=== PATIENT | female | born 1940 | race Caucasian/White ===

== ENCOUNTER 2020-11-06 06:39 | Observation (INO) ==
[2020-11-06] MEDS ORDERED: ACETAMINOPHEN 1,000 MG/100 ML VIAL IV PRN (08:43)
[2020-11-06] MEDS ORDERED: ONDANSETRON INJ 2 MG/ML 2 ML VIAL IV PRN ×2 (08:43→11:45)
[2020-11-06] MEDS ORDERED: MoRPHine SULFATE 2 MG/ML CARP IV PRN (08:43)
[2020-11-06] MEDS ORDERED: PATIENT'S ALLERGY INFO NEEDS ENTERED STA (08:46)
--- NOTE | 2020-11-06 09:00 | History & Physical Report ---
Date of Service November 06, 2020 Assessment & Plan (1) Hernia: Due to the patient's hernia we will place the patient in the hospital on observation status and proceed as follows: We will keep the patient n.p.o. Provide analgesics Provide antiemetics Gently hydrate with IV fluids There is concern for urinary tract infection at [facility] the patient did receive Rocephin. We will check a urine culture and proceed accordingly Dr. Oleary is planning on taking the patient to the operating room today for repair of her inguinal hernia. A Covid test has been ordered and sent and is pending we will follow for the results of this We will check a preoperative EKG We will check a preoperative chest x-ray The recommendations were made based on her clinical course as unfolds as well as operative findings This patient for surgery we will use SCDs for DVT prevention we will avoid chemical means due to planned surgery Admission and Anticipated Discharge Date Admission Date: November 06, 2020 History of Present Illness Chief Complaint: Abdominal pain Primary Care Provider: Nick Cortez This is a 80-year-old female who developed abdominal pain at approximately 8:30 PM last evening. Patient was initially located near her umbilicus and shifted to her right lower quadrant. Patient felt as though she was suffering from an appendicitis and the pain did not resolve so she went to the emergency department at [facility]. Patient says that she did have intermittent bouts of nausea without vomiting. She denied any fevers, shakes, chills. She notes that she did have a normal bowel movement yesterday. She notes that her last oral intake was yesterday. Patient does not note any provocative factors of her pain and the pain does not radiate. She said that the pain was alleviated somewhat with medications that were administered in the emergency department. Concerning previous abdominal surgeries the patient says that she did have a hysterectomy. In the emergency department at [facility] the patient did have labs and imaging performed a CT scan revealed a right inguinal hernia that was causing a developing small bowel obstruction with some mild dilation of the small bowel. A CBC revealed her hemoglobin, hematocrit, white blood cell count, and platelet count were all within normal range. A chemistry profile showed her sodium, BUN, and creatinine were normal. Her potassium noted a slight elevation of 5.3. A troponin level was checked which was not elevated and she also had a lactic acid level checked that was also not elevated. Urinalysis was also concerning for urinary tract infection. As the patient was seen in the emergency department at [facility] they felt patient required transfer to [facility] where surgical services were available. Patient was excepted upon transfer for care. I interviewed the patient in room 360 and the patient noted that since her treatment at [facility] she was feeling better and was in no distress. Allergies Allergy/AdvReac Type Severity Reaction Status Date / Time No Known Allergies Allergy Unverified 11/06/20 10:16 Home Medications Medication Instructions Recorded Confirmed Type Aleve PRN 11/06/20 History ascorbic acid (vitamin C) [Vitamin Q OTHER DAY 11/06/20 History C] ferrous sulfate [FeroSul] mg Q OTHER DAY 11/06/20 History Past Med/Surg History Medical History Arthritis Iron deficiency Surgical History H/O: hysterectomy Family History Denies family history of Coronary heart disease Social History Smoking Status: Never smoker Second Hand Exposure: No; Do You Dip or Chew Tobacco: No; Tobacco Cessation Education Requested by Patient: No Hx Alcohol Use: Yes Alcohol type: wine Hx Substance Use: No Preferred Language: Mauritanian Communication Ability: Effective Millinery Blocker Required: No Beliefs That Will Affect Care: None Current Living Situation: Spouse Other Information That Helps Us Care for You: No Feels Safe at Home: Yes Safety Concerns: Feels Safe At This Time Gender Identity: Female Assistive Devices: Glasses Review of Systems Constitutional: no fever and no chills Eyes: no diplopia Ear, Nose, Mouth, Throat: no ear pain Respiratory: no cough and no dyspnea Cardiovascular: no chest pain Gastrointestinal: + abdominal pain and + nausea; no vomiting Genitourinary: no dysuria Musculoskeletal: no back pain Integumentary: no rash Neurologic: no generalized weakness Physical Exam Constitutional: well developed and well nourished; no acute distress Eyes: Wears glasses ENMT: Ears: no hearing impairment Neck: trachea midline Respiratory: normal respiratory effort, lungs clear to auscultation Cardiovascular: Rate/Rhythm: regular rate and regular rhythm Gastrointestinal (Abdomen): Abdomen is soft and nondistended. There is no rebound tenderness or guarding. Patient did have pain with palpation in the right lower quadrant Patient was examined by Dr. Oleary at the bedside and he was able to reduce a right inguinal hernia. Musculoskeletal: Calf tenderness Skin: no rashes, warm and dry Neurologic: moves all extremities Psychiatric: A+Ox3, euthymic affect Code Status & VTE Plan VTE Prophylaxis Plan VTE Prophylaxis will be ordered: Yes Supervising Physician Co-Signing Physician Notes I personally saw and evaluated the patient with Siva Pearl PA-C and agree with the assessment and plan. 80 yo female with incarcerated right inguinal hernia -NPO -To OR today for open repair right inguinal hernia, possible mesh, possible exploratory laparotomy, possible bowel resection -Consent obtained, risks discussed including bleeding, infection, recurrence, leak, mesh infection, chronic pain PG Care Time/CCT Total # of Minutes Spent Total Time Spent with Patient: Total time spent is greater than 50% in coordination of care (as documented) at patient's floor/unit and/or counseling patient: Coding Level of Care Code 58502 OBS Care - Level 3 Diagnoses Hernia K46.9
[2020-11-06 10:00] LABS: BUN Creatinine Ratio 26.1 (10-20); Blood Urea Nitrogen 19 mg/dl (7-18); Calcium 8.7 mg/dl (8.5-10.1); Carbon Dioxide 30 mmol/L (21-32); Chloride 107 mmol/L (98-107); Est GFR (Non-African American) 80.2 ml/min; Glucose 102 mg/dl (70-99); Potassium 4.6 mmol/L (3.5-5.1); Sodium 139 mmol/L (136-145)
--- NOTE | 2020-11-06 10:07 | XRay Report ---
XR chest 1V portable CLINICAL HISTORY: Preoperative evaluation. COMPARISON STUDY: No previous studies for comparison. FINDINGS: Lung volumes are mildly diminished. A large hiatal hernia is noted. Note is made of mild ca rdiomegaly. There is pulmonary vascular congestion with possible mild pulmonary edema. Left lower shahla g opacity favors atelectasis. There is no pneumothorax. There is no definite pleural effusion. IMPRESSION: 1. Cardiomegaly. Pulmonary vascular congestion with suspected mild pulmonary edema. 2. Left basilar opacity which favors atelectasis. 3. Large hiatal hernia. ACT 112: Negative or not required by law. Electronically signed by: George Sweeney M.D. 11/06/2020 10:06 AM
--- NOTE | 2020-11-06 10:15 | Anesthesiology Consultation ---
Date of Service November 06, 2020 Assessment & Plan (1) Encounter for pre-operative examination: Chart Review Chart Review: Acceptable Risk for Surgery and Patient NOT seen in Pre Admission Testing Consults Requested none ASA ASA3 Proposed Anesthesia Anesthesia Type: General Risk / Benefits Reviewed With: PT / POA / Parent / Guardian, Accepts Plan and Informed Consent Obtained History Surgery Operation Date: 11/06/20 09:00 Proposed Procedures p Inguinal Hernia Repair - Chad Oleary, DO Height/Weight Height: 4 ft 11 in Weight: 65.6 kg Allergies Allergy/AdvReac Type Severity Reaction Status Date / Time No Known Allergies Allergy Unverified 11/06/20 10:16 Medications Home Medications Medication Instructions Recorded Confirmed Last Taken Aleve PRN 11/06/20 Unknown ascorbic acid (vitamin C) [Vitamin Q OTHER DAY 11/06/20 Unknown C] ferrous sulfate [FeroSul] mg Q OTHER DAY 11/06/20 Unknown Active Medications Generic Name Dose Route Start Last Admin Trade Name Freq PRN Reason Stop Dose Admin Lactated Ringer's 1,000 mls @ 75 mls/hr 11/06/20 09:30 11/06/20 10:26 Lr IV 12/06/20 09:29 75 mls/hr .[id number] MEGHA Administration NPO Date Last Intake of Fluids: 11/05/20 Time Last Intake of Fluids: 20:30 Date Last Intake of Solids: 11/05/20 Time Last Intake of Solids: 20:30 Past Medical History Medical History Arthritis Iron deficiency Exercise / Class Metabolic Activity III < 4 Walking/Shop/Light housework Negative for chest pain or shortness of breath. Past Family History Family History Denies family history of Coronary heart disease Past Surgical History Surgical History H/O: hysterectomy Past Anesthesia History No Hx of Anesthesia Complications History of PONV No Hx of PONV Social History Smoking Status: Never smoker Do You Dip or Chew Tobacco: No Hx Alcohol Use: Yes Alcohol type: wine alcohol intake frequency: holidays/special occasions only Hx Substance Use: No Review of Systems Presented last night with abd pain and nausea. No vomiting. Hernia was reduced in [place] and patient now denies nausea and pain. Appropriately NPO and has been moving bowels regularly. Physical Exam Vital Signs Last Vital Signs Temp 36.7 C 11/06/20 09:14 Pulse 74 11/06/20 09:14 Resp 20 11/06/20 09:14 BP 136/60 11/06/20 09:14 Pulse Ox 96 11/06/20 09:14 Constitutional not obese ENMT Mouth: no TMJ abnormality and oral opening not small Thyromental Distance: > or= 3.5 Finger Breadths Mallampati Class: III Neck normal visual inspection; neck extension not limited Respiratory normal respiratory effort Auscultation: lungs clear to auscultation bilaterally Cardiovascular Rate/Rhythm: regular rate and regular rhythm Heart Sounds: no murmur Neurologic moves all extremities Psychiatric Orientation: alert and oriented x 3 Testing Laboratory Results 11/06/20 09:35 COVID neg Electrocardiogram Date: 11/06/20 Findings: + NSR @ (76) Right axis deviation, septal infarct, age undetermined, t wave abnormality, consider inferior ischemia Chest X-Ray Date: 11/06/20 1. Cardiomegaly. Pulmonary vascular congestion with suspected mild pulmonary edema. 2. Left basilar opacity which favors atelectasis. 3. Large hiatal hernia. Stress Test Date: 10/13/20 Type: nuclear Findings: + WNL
[2020-11-06] MEDS: LACTATED RINGER'S 1,000 ML IV SCH ×2 (10:26→15:37)
[2020-11-06] MEDS ORDERED: BUPIVACAINE/EPINEPHRINE 0.5% MPF 1:200,000 30 ML VIAL ONE (11:23)
[2020-11-06] MEDS ORDERED: fentaNYL citrate 100 MCG/2 ML VIAL ONE (11:27)
[2020-11-06] MEDS ORDERED: ePHEDrine sulfate 50 MG/ML AMP IV PRN (11:45)
[2020-11-06] MEDS ORDERED: ATROPINE SULFATE 0.1 MG/ML 10ML SYR IV PRN (11:45)
[2020-11-06] MEDS ORDERED: fentaNYL citrate 100 MCG/2 ML VIAL IV PRN (11:45)
[2020-11-06] MEDS ORDERED: DEXAMETHASONE SOD INJ 4 MG/ML VIAL ONE (12:06)
[2020-11-06] MEDS ORDERED: ONDANSETRON INJ 2 MG/ML 2 ML VIAL ONE (12:06)
[2020-11-06] MEDS ORDERED: PROPOFOL IV EMULSION 10 MG/ML 20 ML VIAL IV ONE (12:06)
[2020-11-06] MEDS ORDERED: LIDOCAINE HCL 2% 2 ML VIAL/AMP(20MG/ML) INFIL ONE (12:06)
[2020-11-06] MEDS ORDERED: ceFAZolin 2000MG 2,000 MG/15 ML SYR IV ONE (12:13)
--- NOTE | 2020-11-06 13:26 | Post Operative Brief Note ---
PG Immediate Post Op with CF Date of Surgery November 06, 2020 Pre & Post Diagnosis Operation Date: 11/06/20 09:00 Pre-Op Diagnosis: Incarcerated Right Inguinal Hernia Post-Op Diagnosis: Incarcerated RIght Inguinal Hernia I identified the patient and participated in the time-out.: Yes Procedure Operation Date: 11/06/20 09:00 Actual Procedures p Open Repair Incarcerated Right Inguinal Hernia with Mesh(Right) - Chad Oleary DO Surgeon Chad Oleary DO Avionics System Engineer None Estimated Blood Loss 5 Findings Consistent with Post-Op Diagnosis Incarcerated right inguinal hernia Fluids 600mL crystalloid Specimens Specimen Description: A. Cord Lipoma Anesthesia Type General Complications none Disposition Disposition: Recovery Room
--- NOTE | 2020-11-06 13:34 | Operative Report ---
PG Post Operative Report Pre & Post Diagnosis Operation Date: 11/06/20 09:00 Pre-Op Diagnosis: Incarcerated Right Inguinal Hernia Post-Op Diagnosis: Incarcerated Right Inguinal Hernia I identified the patient and participated in the time-out.: Yes Procedure Operation Date: 11/06/20 09:00 Actual Procedures p Open Repair Incarcerated Right Inguinal Hernia with Mesh(Right) - Chad Oleary DO Surgeon Chad Oleary DO Mental Health Nurse None Estimated Blood Loss 5 Findings Consistent with Post-Op Diagnosis Large direct inguinal hernia Fluids 600mL crystalloid Specimens Cord lipoma to pathology Drains None Anesthesia Type General Complications none Disposition Disposition: Recovery Room Indications 80 yo female with incarcerated right inguinal hernia causing a small bowel obstruction Description of Procedure The patient was brought to the operating room and placed in the supine position. At this time she underwent General LMA anesthesia without any problems. Her right groin was prepped and draped in the usual sterile fashion. She was given appropriate pre-operative antibiotics. A timeout was called. The procedure was verified as Open Right inguinal hernia repair, possible mesh. Surgical, anesthesia and nursing teams agreed and the procedure was begun. The hernia spontaneously reduced once the patient was under anesthesia. Using the traditional landmarks of the ASIS and pubic tubercle, a transverse incision was made over the midportion of the inguinal canal using a #15 blade scalpel after injection of 0.25% Marcaine with epinephrine to anesthetize the skin. The incision was carried down the the external oblique aponeurosis with electrocautery which was cleared off of any tissue. The external oblique aponeurosis was then incised using a #15 blade scalpel and opened inferiomedially through the external inguinal ring with Metzenbaum scissors taking care not to injure the ilioinguinal nerve. It was then opened superiolaterally as well. The posterior aspect of the external oblique was cleared bluntly and the round ligament was encircled at the pubic tubercle with a Glen drain. At this time a direct inguinal hernia was evident. This was bluntly from the round ligament and easily reduced back into the abdo men. A cord lipoma was excised and tied off using 2-0 Vicryl, then passed off as specimen. At this time a plug was sutured into the direct defect using 2-0 PDS. A flat keyhole mesh was then sutured to the pubic tubercle medially, shelving edge of the inguinal ligament inferiorly and the conjoint tendon superiorly using simple interrupted 2-0 PDS. The tails of the mesh were loosely overlapped recreating the internal inguinal ring leaving adequate room for the round ligament to pass. The Yoel drain was removed. The incision was irrigated until clear. Hemostasis was acheived using electrocautery. Hemostasis was complete. At this time the external oblique aponeurosis was closed using a running 2-0 Vicryl taking care not to injure any structures beneath. Robert's fascia was closed using interrupted 3-0 Vicryl and the skin was closed using 4-0 Monocryl in a running subcuticular fashion. Needle and sponge counts were correct x 2. Steri-strips and dressing were applied. The patient was then awakened from anesthesia having remained stable throughout the entire case and transported to PACU in stable condition. I attest to the content of the Intraoperative Record and any orders documented therein. Any exceptions are noted below.
[2020-11-06] MEDS ORDERED: oxyCODONE HCL IR 5 MG TAB (IMMEDIATE RELEASE) PO PRN (14:13)
[2020-11-06] MEDS ORDERED: ACETAMINOPHEN 325 MG TAB PO PRN (14:13)
--- NOTE | 2020-11-06 14:55 | Anesthesiology Progress Note ---
Date of Service November 06, 2020 Anesthesia Post Procedure Vital Signs Vital Signs: Temp Pulse Pulse Resp BP BP Pulse Ox 11/06/20 14:14 36.4 C L 85 16 146/78 H 97 11/06/20 14:00 36.4 C L 89 15 148/74 H 97 11/06/20 13:50 85 14 154/67 H 97 11/06/20 13:40 87 14 147/76 H 97 11/06/20 13:30 89 13 155/72 H 98 11/06/20 13:22 36.7 C 91 H 12 149/71 H 99 11/06/20 09:14 36.7 C 74 20 136/60 96 Transfer of Care Handoff Completed per policy Notes Mental Status: alert / awake / arousable and participated in evaluation Patient Amnestic to Procedure: Yes Nausea / Vomiting: adequately controlled Pain: adequately controlled Airway Patency, RR, SpO2: stable & adequate BP & HR: stable & adequate Hydration State: stable & adequate Anesthetic Complications: no major complications apparent and Pt Satisfied with anesthetic care
--- NOTE | 2020-11-06 18:52 | Electrocardiogram Report ---
Test Reason : Blood Pressure : / mmHG Vent. Rate : 076 BPM Atrial Rate : 076 BPM P-R Int : 170 ms QRS Dur : 116 ms QT Int : 410 ms P-R-T Axes : 041 126 -23 degrees QTc Int : 461 ms Normal sinus rhythm Right axis deviation Left bundle branch block T wave abnormality, consider inferior ischemia Abnormal ECG No previous ECGs available Confirmed by Ignacio Murphy ([id number]) on 11/06/2020 6:52:19 PM Referred By: Chad Oleary Confirmed By:Phoenix Murphy
[2020-11-07] MEDS: LACTATED RINGER'S 1,000 ML IV SCH (05:01)
--- NOTE | 2020-11-07 08:25 | Surgery Progress Note ---
Date of Service November 07, 2020 Assessment & Plan (1) Hernia: POD 1 RIH repair diet as fabio recheck later today for possible d/c Admission and Anticipated Discharge Date Admission Date: November 06, 2020 Subjective no pain, had dinner Physical Exam Gastrointestinal (Abdomen): Inspection/Auscultation: + abdominal surgical incision (dressing dry) Percussion/Palpation: abdomen soft Results & Data ([facility]) Vital Signs (Past 12 Hours) Vital Signs Temp Pulse Pulse Resp BP BP Pulse Ox 11/07/20 07:15 36.7 C 78 18 132/73 94 11/07/20 02:16 36.8 C 81 18 133/83 96 11/06/20 20:49 36.9 C 84 16 131/76 94 PG Care Time/CCT Total # of Minutes Spent Total Time Spent with Patient: Total time spent is greater than 50% in coordination of care (as documented) at patient's floor/unit and/or counseling patient: Coding Level of Care Code None Diagnoses Hernia K46.9
--- NOTE | 2020-11-08 09:46 | Discharge Summary ---
Date of Service November 08, 2020 Admission HPI Per Admitting Provider This is a 80-year-old female who developed abdominal pain at approximately 8:30 PM last evening. Patient was initially located near her umbilicus and shifted to her right lower quadrant. Patient felt as though she was suffering from an appendicitis and the pain did not resolve so she went to the emergency department at [facility]. Patient says that she did have intermittent bouts of nausea without vomiting. She denied any fevers, shakes, chills. She notes that she did have a normal bowel movement yesterday. She notes that her last oral intake was yesterday. Patient does not note any provocative factors of her pain and the pain does not radiate. She said that the pain was alleviated somewhat with medications that were administered in the emergency department. Concerning previous abdominal surgeries the patient says that she did have a hysterectomy. In the emergency department at [facility] the patient did have labs and imaging performed a CT scan revealed a right inguinal hernia that was causing a developing small bowel obstruction with some mild dilation of the small bowel. A CBC revealed her hemoglobin, hematocrit, white blood cell count, and platelet count were all within normal range. A chemistry profile showed her sodium, BUN, and creatinine were normal. Her potassium noted a slight elevation of 5.3. A troponin level was checked which was not elevated and she also had a lactic acid level checked that was also not elevated. Urinalysis was also concerning for urinary tract infection. As the patient was seen in the emergency department at [facility] they felt patient required transfer to [facility] where surgical services were available. Patient was excepted upon transfer for care. I interviewed the patient in room 360 and the patient noted that since her treatment at [facility] she was feeling better and was in no distress. Principal Diagnosis Incarcerated right inguinal hernia Discharge Exam Constitutional WD/WN, vitals as above Gastrointestinal (Abdomen) Inspection/Auscultation: + abdominal surgical incision (clean, dry) Percussion/Palpation: abdomen soft Discharge Data Allergies Allergy/AdvReac Type Severity Reaction Status Date / Time No Known Allergies Allergy Unverified 11/06/20 10:16 Procedures Performed Operation Date: 11/06/20 09:00 Actual Procedures p Open Repair Right Incarcerated Inguinal Hernia with Mesh(Right) - Chad Oleary DO Hospital Course (1) Hernia: 80 y/o female was transferred from [facility] with incarcerated right inguinal hernia and developing small bowel obstruction. She was taken to the OR for open right inguinal hernia repair with mesh and transferred to the surgical floor for overnight observation. By the next morning she was able to tolerate a regular diet and oral analgesics. She was stable fo discharge home. Total Time Total Time Spent Total Time Spent (In Minutes): 15 Discharge Plan Discharge Items Patient Disposition: Home - Self-Care Reason For Visit: OPEN REPAIR OF HERNIA Discharge Diagnosis: repair of incarcerated hernia Activity: As commented below Lifting: No more than 10 pounds Bathing Comment: you can remove the bandage to shower tonight or tomorrow morning Driving/Machine Use: do not drive for 1 week Non-emergency contact: Surgeon Call non-emergency contact if: you have any medication questions, your pain is not controlled, your pain is worsening and your temperature is above 101.5 Follow-up/Referrals: Chad Oleary DO [Physician] - 11/16/20 10:10 am () Nick Cortez [Primary Care Provider] - Diet: Regular Addtl Attending Provider Instructions: Leave steri-strips on until your appointment You can take Tylenol or Aleve as needed for pain Pending Studies at Discharge: No Stand-Alone Forms: [email or web address], Opioid Pain Management, Smoking Cessation Medications and DC Order Prescriptions: New oxycodone 5 mg tablet 5 - 10 mg PO Q4H Qty: 10 RF: 0 Continued ferrous sulfate [FeroSul] 325 mg (65 mg iron) tablet Q OTHER DAY RF: 0 ascorbic acid (vitamin C) [Vitamin C] 500 mg tablet Q OTHER DAY RF: 0 Aleve PRN (Reason: Pain) RF: 0 Discharge Orders: Discharge Order (Routine); Ordered 11/07/20 Ordered By: Maninder King/Other Patient Handouts: What Is a Hernia?, How a Hernia Develops Admission Data Admit Date/Time: 11/06/20 08:43 Attending Provider: Chad Oleary Admit Provider: Chad Oleary Primary Care Provider: Nick Cortez Other Interventions: Discharge Summary Assessment (RN) Last Done: 11/07/20 14:06 Coding Level of Care Code D/C Day Management <30 mins Diagnoses Hernia K46.9
== END 2020-11-07 14:59 | disposition home or self-care (01) ==
LOC: INTOOBSV 08:43 → 3W 08:44
DX: K40.30 Unilateral inguinal hernia, with obstruction, without gangrene, not specified as recurrent